=== PATIENT | female | born 2000 | race Caucasian/White ===

== ENCOUNTER 2022-09-08 14:13 | Emergency (ER) | payer BC, SELFPAY ==
[2022-09-08 14:27] VITALS: BP 117/81; PULSE 96; RESP 18; TEMP 36.8; O2SAT 100
--- NOTE | 2022-09-08 14:30 | ED.DENTAL ---
HPI - Dental/Oral General Chief complaint: Dental/Oral Stated complaint: Mouth Sores Time Seen by Provider: 09/08/22 14:30 Source: patient Mode of arrival: ambulatory Limitations: no limitations History of Present Illness HPI Narrative: 22-year-old female presents with complaint of mouth sores for the past several days. Reports that she has been getting them since she was a child. No known cause. Has taken prednisone several times in the past that has helped. requesting a taper dose. No other complaints today. All systems reviewed and negative except as noted above. Related Data Home Medications Medication Instructions Recorded Confirmed cariprazine 3 mg capsule (Vraylar) 3 mg PO DAILY 09/08/22 09/08/22 Allergies Allergy/AdvReac Type Severity Reaction Status Date / Time No Known Allergies Allergy Verified 09/08/22 14:33 Review of Systems Review of Systems: CONSTITUTIONAL: Denies fever, chills, or sweats. EYES: Denies visual changes, redness, or discharge. ENT: Denies rhinorrhea, congestion, sore throat, or otalgia. reports sores to lower lip. CARDIOVASCULAR: Denies chest pain, palpitations, or edema. RESPIRATORY: Denies cough or dyspnea. GASTROINTESTINAL: Denies abdominal pain, nausea, vomiting, or diarrhea. GENITOURINARY: Denies dysuria or hematuria. SKIN: Denies rash or itching. MUSCULOSKELETAL: Denies back pain, joint pain, or myalgia. NEUROLOGIC: Denies headache, numbness, or weakness. PSYCHIATRIC: Denies anxiety or depression. All other systems reviewed are negative, except as documented in HPI. PMFSH Comments At time of signature, agree with nursing past medical, surgical, social and family history. There is no relevant family history pertinent to the presenting complaint. Exam Narrative: GENERAL: This is a well-nourished, well-developed patient, in no apparent distress. HEAD: normocephalic, atraumatic. EYES: PERRL. Sclera clear/white. Vision is grossly intact. EARS: External ears normal NOSE: External nose normal MOUTH: erythematous lesions to oral mucosae lower lip. Non vesicular. NECK: Neck supple, non-tender without lymphadenopathy, masses or thyromegaly. CARDIOVASCULAR: Regular rate and rhythm without murmurs, gallops, or rubs. RESPIRATORY: Clear to auscultation. Breath sounds equal bilaterally. No wheezes, rales, or rhonchi. SKIN: warm, Dry, intact with no suspicious lesions or rash, good texture and turgor. NEURO: awake, alert, and oriented to person, place and time. There were no obvious focal neurologic abnormalities. EXTREMITIES: No joint tenderness, effusion, or edema noted. Course Course Level of Care: Express Care Visit Vital Signs Vital signs: Vital Signs Temperature 36.8 C 09/08/22 14:27 Pulse Rate 96 09/08/22 14:27 Respiratory Rate 18 09/08/22 14:27 Blood Pressure 117/81 09/08/22 14:27 Pulse Oximetry 100 09/08/22 14:27 Oxygen Delivery Room Air 09/08/22 14:27 Temperature 36.8 C 09/08/22 14:27 Pulse Rate 96 09/08/22 14:27 Respiratory Rate 18 09/08/22 14:27 Blood Pressure 117/81 09/08/22 14:27 Pulse Oximetry 100 09/08/22 14:27 Oxygen Delivery Room Air 09/08/22 14:27 Reviewed MDM - Dental/Oral MDM Narrative Medical decision making narrative: Patient is aware of diagnosis, understands and agrees to treatment plan. Anticipatory guidance given. Patient agrees to follow-up as directed and is aware of reasons to seek care at the emergency department. Portions of this record may have been created with voice recognition software Discharge Plan Discharge Clinical Impression: Mouth sores Patient Disposition: Home, Self-Care Condition: Stable Instructions: Canker Sores (ED) Additional Instructions: Take medications as prescribed. Avoid irritating foods such as spicy food, citrus, rough food like chips and crackers. Practice good oral hygiene, brush teeth twice a day. See your doctor if not improv
== END 2022-09-08 14:45 | disposition home or self-care (01) ==
PROVIDERS: Emergency Provider Nurse Practitioner Family
DX: K13.70 Unspecified lesions of oral mucosa (principal); F31.9 Bipolar disorder, unspecified
CPT/HCPCS: 99203; G0463